=== PATIENT | female | born 1955 | race American Indian/Alaskan Native ===

== ENCOUNTER 2016-07-15 15:09 | Emergency (ER) | payer OTHER ==
[2016-07-15 15:09] VITALS: BMI 36.9
[2016-07-15 15:29] VITALS: BP 146/100; PULSE 77; RESP 20; TEMP 97.7; O2SAT 97
--- NOTE | 2016-07-15 16:13 | ED PDOC ---
Upper Extremity Pain/Injury Time Seen by Provider: 07/15/16 15:32 Chief Complaint (Nursing): Upper Extremity Problem/Injury Chief Complaint (Provider): Upper extremity problem/injury History Per: Patient History/Exam Limitations: no limitations Onset/Duration Of Symptoms: Hrs Current Symptoms Are (Timing): Still Present Additional History Per: Patient Additional Complaint(s): Hailee Henning is a 61 year old female with no past medical history who presents to the ED with a chief complaint of a sore right wrist. Patient reports to have tripped over a phone wire and landed on her right wrist. The pain is non radiating and denies any associated symptoms. Patient was told by coworkers to get her wrist checked out because it appeared swollen. Pt denies numbness/tingling. Past Medical History Reviewed: Historical Data, Nursing Documentation, Vital Signs Vital Signs: Last Vital Signs Temp 97.7 F 07/15/16 15:27 Pulse 77 07/15/16 15:27 Resp 20 07/15/16 15:27 BP 146/100 H 07/15/16 15:27 Pulse Ox 97 07/15/16 15:27 - Medical History PMH: No Chronic Diseases Denies: Chronic Kidney Disease - Surgical History Surgical History: No Surg Hx - Family History Family History: States: No Known Family Hx - Immunization History Hx Tetanus Toxoid Vaccination: No Hx Influenza Vaccination: Yes Hx Pneumococcal Vaccination: No - Home Medications Home Medications: Ambulatory Orders Medication Instructions Recorded oxyCODONE/Acetaminophen [Percocet 1 tab PO BID PRN #7 tab 02/22/15 5/325 mg Tab] - Allergies Allergies/Adverse Reactions: Allergies Allergy/AdvReac Type Severity Reaction Status Date / Time No Known Allergies Allergy Verified 07/15/16 15:26 Review of Systems ROS Statement: Except As Marked, All Systems Reviewed And Found Negative Constitutional: Positive for: Weakness (Right wrist) Musculoskeletal: Positive for: Other (Right sided wrist pain). Negative for: Shoulder Pain, Arm Pain Physical Exam - Reviewed Nursing Documentation Reviewed: Yes Vital Signs Reviewed: Yes - Physical Exam Appears: Positive for: Well, Non-toxic, No Acute Distress Head Exam: Positive for: ATRAUMATIC, NORMAL INSPECTION, NORMOCEPHALIC Skin: Positive for: Normal Color, Warm, Dry Eye Exam: Positive for: Normal appearance ENT: Positive for: Normal ENT Inspection Neck: Positive for: Normal Cardiovascular/Chest: Negative for: Murmur, Tachycardia Respiratory: Negative for: Accessory Muscle Use, Wheezing, Respiratory Distress Gastrointestinal/Abdominal: Negative for: Tenderness Back: Positive for: Normal Inspection Rectal: Positive for: Deferred Extremity: Positive for: Normal ROM, Tenderness (Mild Snuffbox Tenderness). Negative for: Pedal Edema, Deformity, Swelling, Other (Sensation intact ) Neurologic/Psych: Positive for: Alert, Oriented - ECG O2 Sat by Pulse Oximetry: 97 (RA) Pulse Ox Interpretation: Normal Medical Decision Making Medical Decision Making: Time: 1532: Impression: Trauma Plan: * Wrist AP LAT 2 View RT * Ibuprofen 600mg * Hand right 3 Views Scribe Attestation: Documented by Natalio Stone acting as a scribe for Jimena Esposito PA-C. Provider Attestation: All medical record entries made by the Scribe were at my direction and personally dictated by me. I have reviewed the chart and agree that the record accurately reflects my personal performance of the history, physical exam, medical decision making, and the department course for this patient. I have also personally directed, reviewed, and agree with the discharge instructions and disposition. Disposition - Clinical Impression Clinical Impression: Hand pain - Patient ED Disposition Is Patient to be Admitted: No Counseled Patient/Family Regarding: Diagnosis, Need For Followup - Disposition Referrals: Cody Li MD [Medical Doctor] - Disposition: Routine/Home Disposition Time: 16:56 Condition: GOOD Additional Instructions: Repeat x-ray in 7 days. Instructions: Hand Sprain (ED) Forms: [facility] ED School/Work Excuse
--- NOTE | 2016-07-15 17:20 | RAD ---
PROCEDURE: Right Hand Radiographs. HISTORY: april REYNAGA box tenderness COMPARISON: July 15, 2016. Right wrist reported separately. FINDINGS: BONES: Normal. No fracture. JOINTS: Normal. No osteoarthritic changes. SOFT TISSUES: Normal. OTHER FINDINGS: None. IMPRESSION: No acute findings related to/accounting for the clinical presentation.
--- NOTE | 2016-07-15 17:21 | RAD ---
PROCEDURE: Right Wrist Radiographs. HISTORY: right wrist pain, FOOSH COMPARISON: None. FINDINGS: BONES: Normal. No fracture. JOINTS: Normal. No dislocation. SOFT TISSUES: Normal. OTHER FINDINGS: None. IMPRESSION: Normal right wrist radiographs.
== END 2016-07-15 17:13 | disposition home or self-care (01) ==
LOC: H.ER 15:09
DX: M79.641 Pain in right hand (principal)

== ENCOUNTER 2016-08-26 09:31 | Day surgery (SDC) | payer OTHER ==
[2016-08-20 12:06] VITALS: RESP 18
[2016-08-26] MEDS ORDERED: Lactated Ringer's 1,000 ML IV ONE (10:07)
[2016-08-26] MEDS ORDERED: methylPREDNISolone Depo 80 mg/ml Inj IM ONE (11:51)
[2016-08-26] MEDS ORDERED: Bupivacaine HCl 0.25% PF (10 ml) Inj IJ ONE (11:51)
[2016-08-26] MEDS ORDERED: Lactated Ringer's 1,000 ML IV SCH (12:06)
[2016-08-26] MEDS ORDERED: Oxycodone/Acetaminophen 5/325 mg Tab PO PRN ×2 (12:06)
[2016-08-26] MEDS ORDERED: HYDROmorphone 0.5 mg/0.5 ml ISec IVP PRN (12:06)
--- NOTE | 2016-08-26 12:10 | PCM.SURG1 ---
Surgeon's Initial Post Op Note - Surgeon's Notes Surgeon: Dr. Geraldo OSHEA [employer] Technician: Dr. Godoy DPM PGY-1, Senthil Vazquez PA-C Type of Anesthesia: General Endo Anesthesia Administered By: Dr. Quintero Pre-Operative Diagnosis: right knee meniscal tear Operative Findings: see dictation Post-Operative Diagnosis: same Operation Performed: right knee arthroscopy Specimen/Specimens Removed: none Estimated Blood Loss: EBL {In ML}: 1 Blood Products Given: N/A Post-Op Condition: Good Date of Surgery/Procedure: 08/26/16 Time of Surgery/Procedure: 12:10
[2016-08-26 13:51] VITALS: BP 134/78; PULSE 69; TEMP 97.6; O2SAT 96
--- NOTE | 2016-08-26 16:32 | OP ---
PROCEDURE DATE: 08/26/2016 DATE OF OPERATION: 08/26/2016 ATTENDING PHYSICIAN: Seble Chow MD [employer] OPERATOR: ELISA Robles PREOPERATIVE DIAGNOSES: 1. Right knee medial and lateral meniscal tear. 2. Synovitis. 3. Chondromalacia. POST- OPERATIVE DIAGNOSES: 1. Right knee tricompartmental synovitis. 2. Osteophytes of the trochlea. 3. Grade III chondromalacia of the medial femoral condyle. 4. Grade III chondromalacia of lateral femoral condyle. 5. Medial meniscal tear. 6. Lateral meniscal tear. 7. Patellofemoral adhesions. ANESTHESIA: General. PROCEDURES: 1. Right knee arthroscopy, partial medial and lateral meniscectomy. 2. Major synovectomy of all 3 compartments. 3. Chondroplasty of medial and lateral femoral condyle. 4. Abrasion arthroplasty of the trochlea. 5. Lysis of adhesions of patellofemoral compartment. 6. Injection of large joint. 7. 22 modifiers of previous surgery. EBL: 10 mL. SPECIMENS: None. DRAINS: CLOSURE: Primary FLUIDS: See anesthesia sheet COMPLICATIONS: None. INDICATIONS: After failing a course of non-operative therapy, the patient elected to undergo the abo ve procedure. In the office, the risks and possible complications of knee arthroscopy were discussed in detail with the patient. These risks include but are not limited to continued pain, lack of motio n, infection, vascular injury, DVT / PE, nerve injury including peroneal nerve dysfunction, reflex sy mpathetic dystrophy, compartment syndrome, unforeseen medical and/or anesthesia complications, limb l oss, and even . The patient expressed an understanding of the risks and possible benefits of th e procedure, and is also aware of the alternatives to surgery. An informed consent was obtained, and was checked immediately pre-op. PROCEDURE: Paragraph 1 The patient was correctly identified in the holding area and the right knee was marked with the surge ons initials. The patient was transported to the operating room and placed in the supine position, g eneral anesthesia was obtained, a pre-operative orthopaedic exam revealed effusion 1+, range of motio n is from 5 to 120, stable to varus and valgus stress. Paragraph 2 The lower extremity was prepped and draped in the standard fashion, and the thigh was placed in an ar throscopic leg aguilar. A well-padded tourniquet was applied to the patient's thigh. Time out was co mpleted confirming the correct operative site. Esmarch was used to exsanguinate the leg and tournique t was inflated to 300 mmhg. A standard anterolateral viewing portals were made with a #11 blade after sub-dermal 1% Lidocaine with Epinephrine injection. Paragraph 3 The knee was distended with normal saline and epinephrine in a 1:1,000,000 mixture, at an initial pre ssure of 35mmHg. The arthroscope was inserted from the anterolateral portal and moved into the media l compartment. Next, the anteromedial working portal was made with spinal needle localization. The arthroscopic probe was inserted, and all compartments of the knee were sequentially visualized. FINDINGS: Arthroscopic examination of the knee revealed: 1. Tricompartmental synovitis. 2. Osteophyte of the trochlea. 3. Grade III chondromalacia of the medial femoral condyle. 4. Grade III chondromalacia of lateral femoral condyle. 5. A medial meniscal tear. 6. Lateral meniscal tear. 7. Patellofemoral adhesions. The anterior cruciate ligament and posterior cruciate ligament were intact. Partial medial meniscectomy was performed with a combination of hand instruments and a 4.0 mm motoriz ed shaver. The meniscus was debrided to a smooth, stable border with an excursion of less than 3 mm. Partial lateral meniscectomy was performed with a combination of hand instruments and a 4.0 mm motori zed shaver. The meniscus was debrided to a smooth, stable border with an excursion of less than 5 mm. The motorized shaver was used to mechanically debride the loose, fibrillated and fragmented chondral edges of the medial femoral condyle and lateral femoral condyle to a stable border. Extreme care was taken to not disrupt the adjacent chondral surface. The edges of injured chondral area were probed t o ensure stability after the shaver was withdrawn from the knee. The motorized shaver was used to perform a synovectomy of the medial, lateral, and patellofemoral com partments. The hypertrophic synovium was resected with minimal bleeding. No synovial incarceration w as noted after synovectomy when the knee was put through a full passive range of motion. Due to injuries to the patellofemoral region resulting in organized scar and suprapatellar adhesions, a decision was made to perform and anterior interval release to decrease the patellofemoral joint re action force and relieve pressures over the patella and trochlea. The synovectomy was carried over t o the suprapatellar pouch and an anterior interval release was performed over the anterior compartmen t and the suprapatellar pouch with the motorized shaver. The anterior fat pad was released and debul ked during this procedure. The inflow was shut off and the area checked for hemostasis. Small bleed ers were coagulated with the radiofrequency device. At this point, the impinging osteophyte of the trochlea region was addressed utilizing the mechanical shaver. The area was debrided, and an abrasion chondroplasty was performed to prevent further impin gement. Care was taken to preserve the surrounding intact chondral and osseous surfaces. The perime ter of the debrided area was inspected for loose chondral flaps, which were smoothed with the shaver. Finally, 1 mL of 40 mg Depomedrol mixed with 9 mL of 0.25% Marcaine was injected within the knee join t. Post operatively, the patient will be weight bearing as tolerated and will utilize my standard post a rthroscopy rehab protocol. The patient will be started on straight leg raising and quadriceps settin g exercises in the recovery room and will progress to prone hangs as well as prone knee flexion exerc ises using an active assisted construct. During this procedure, I was assisted by ELISA Robles, who assisted in positioning the patient on the operating room table as well as transferring the patient from the operating room table to the recovery room stretcher. In addition, ELISA Robles, assisted me during the actual operative pr ocedure by positioning the patient's extremity to allow for easier arthroscopic access to all areas o f the joint. The presence of ELISA Robles, as my operative religious assistant was medically necessary t o ensure the utmost safety of the patient in the pre, intra-, and post-operative periods. Due to the patient's previous procedures performed in this area, right knee arthroscopy and meniscect derrick, this procedure was more difficult than a standard knee arthroscopy. This required extra time du ring prepping and draping, as well as an extended operative time. Because of the added complexity. Seble Chow MD cc: [id number] TT: 08/26/2016 16:31:33 dn
== END 2016-08-26 15:48 | disposition home or self-care (01) ==
LOC: H.OPSURG 09:31
PROVIDERS: ATTEND Orthopaedic Surgery
DX: M23.211 Derangement of anterior horn of medial meniscus due to old tear or injury, right knee (principal); M67.861 Other specified disorders of synovium, right knee; M25.461 Effusion, right knee; M25.70 Osteophyte, unspecified joint